=== PATIENT | male | born 1960 | race Caucasian/White ===

== ENCOUNTER 2017-05-16 12:54 | Emergency (ER) | payer BC, OTHER ==
[~2017-05-16] VITALS: Ht 182.9 cm; Wt 96.6 kg
[~2017-05-16 12:54] MED LIST: MUCINEX
[2017-05-16 13:55] LABS: Basophils # (auto) 0.1 uL; Basophils % (auto) 0.5 % (0.0-2.0); CONDITION Y; Eosinophils # (auto) 0 uL; Eosinophils % (auto) 0.4 % (0.0-7.0); Hematocrit 42.8 % (41.0-53.0); Hemoglobin 15.1 g/dL (13.5-17.5); Lymphocytes # (auto) 1.6 uL; Mean Corpuscular Hemoglobin 32.6 pg (28.0-32.0); Mean Corpuscular Hgb Conc. 35.4 g/dL (32.0-36.0); Mean Corpuscular Volume 92.2 fL (80.0-100.0); Mean Platelet Volume 8.3 fL (7.4-10.4); Monocytes # (auto) 0.5 uL; Monocytes % (auto) 5.4 % (0.0-12.0); Neutrophils # (auto) 7.9 uL; Neutrophils % (auto) 77.7 % (37.0-80.0); Platelet Count (auto) 216 10^3/uL (140-450); White Blood Cell 10.1 10^3/uL (4.4-10.8)
[2017-05-16 14:05] LABS: Albumin 3.7 g/dL (3.4-5.0); BUN/Creatinine Ratio 14.8; Bilirubin, Total 0.4 mg/dL (0.2-1.0); Calcium 8.9 mg/dL (8.5-10.1); Potassium 4.2 mmol/L (3.5-5.1); Total Protein 7.2 g/dL (6.4-8.2)
[2017-05-16] MEDS ORDERED: MORPHINE SULF INJ 2 MG/ML SYRINGE 1ML ONE (14:54)
[2017-05-16] MEDS ORDERED: ONDANSETRON HCL 4 MG/2 ML VIAL ONE (14:54)
[2017-05-16] MEDS ORDERED: TETANUS-DIPTH-ACEL PERTUSSIS 0.5ML SYRG IM ONE (15:00)
[2017-05-16] MEDS ORDERED: MORPHINE SULFATE 4 MG/ML SYRG IV ONE (15:00)
[2017-05-16] MEDS ORDERED: ONDANSETRON HCL 4 MG/2 ML VIAL IV ONE (15:00)
[2017-05-16] MEDS ORDERED: LIDOCAINE 1% HCL (LOCAL ANESTH.) INJ 20ML MDV ONE (15:23)
[2017-05-16] MEDS ORDERED: LIDOCAINE 2%HCL (LOCAL ANESTH.) INJ 20ML MDV ONE (15:23)
[2017-05-16] MEDS ORDERED: LIDOCAINE 1% HCL (LOCAL ANESTH.) INJ 20ML MDV IJ ONE (15:30)
[2017-05-16] MEDS ORDERED: cefTRIAXone 1GM/50ML D5W 50 ML IV ONE (16:00)
[2017-05-16 16:34] VITALS: BP 103/64
== END 2017-05-16 16:33 | disposition home or self-care (01) ==
LOC: ER 12:54
DX: S61.213A Laceration without foreign body of left middle finger without damage to nail, initial encounter (principal); S61.215A Laceration without foreign body of left ring finger without damage to nail, initial encounter; G40.909 Epilepsy, unspecified, not intractable, without status epilepticus; F17.210 Nicotine dependence, cigarettes, uncomplicated; Z86.73 Personal history of transient ischemic attack (TIA), and cerebral infarction without residual deficits; W45.8XXA Other foreign body or object entering through skin, initial encounter; Y93.89 Activity, other specified; Y92.89 Other specified places as the place of occurrence of the external cause; Y99.8 Other external cause status
CPT/HCPCS: 12002; 36415; 70450; 80053; 80164; 85025; 90471; 90715; 94761; 96374; 96375; 99285; J2001; J2270; J2405

== ENCOUNTER 2021-06-28 11:24 | Emergency (ER) | payer BC ==
[2021-06-28 11:24] VITALS: BP 113/74
== END 2021-06-28 11:28 | disposition left against medical advice (07) ==
LOC: ER 11:24
DX: R51.9 Headache, unspecified (principal); M79.604 Pain in right leg; Z53.21 Procedure and treatment not carried out due to patient leaving prior to being seen by health care provider